=== PATIENT | female | born 1975 | race Caucasian/White ===

== ENCOUNTER 2024-07-16 15:02 | Outpatient (OUT) | payer SELFPAY ==
--- NOTE | 2024-07-16 | XR_ITS ---
The [address] [address] Patient Name: MANNY BOWSER MRN: [id number] date: 1975 Sex: F Assigned Patient Location: [facility] Current Patient Location: [facility] Accession/Order Number: [id number] Exam Date: 07/16/2024 16:04 Report Date: 07/16/2024 16:10 At the request of: JEANNETTE TREVINO MD Procedure: XR tibia fibula RT 2V CLINICAL HISTORY: Paresthesia; R20.2 LUMBAR SPINE -4 views: COMPARISON: None AP, lateral and both oblique views were obtained. There are hypoplastic 12th ribs. There is no evidence of fracture. There is minor stairstep retrolisthesis from L1-2 through L3-4. There is also minimal retrolisthesis of L5 on S1. Slight disc space narrowing is visualized at L3-4. There are tiny endplate spurs. Mild lower lumbar facet disease is noted. No pars defect is identified. The sacroiliac joints are maintained. There are no paraspinal soft tissue abnormalities. XR/XR lumbar spine min 4V IMPRESSION: MILD DEGENERATIVE CHANGES. NO ACUTE BONY FINDINGS. RIGHT TIB-FIB - 2 views COMPARISON: None AP and lateral views were obtained. There is no acute fracture or dislocation. There is minor marginal spurring at the posterior patella. There are enthesophytes at the tibial tubercle as well as at the posterior and plantar calcaneal spur. No soft tissue abnormalities are noted. IMPRESSION: MINOR DEGENERATIVE CHANGES. NO ACUTE BONY FINDINGS. Impression dictated by: Jennifer Guzman M.D.07/16/2024 4:10 PM Dictation Location: [place] [address] Electronically authenticated by: [id number] Y Date: 07/16/2024 16:10
--- NOTE | 2024-07-16 | XR_ITS ---
The [address] [address] Patient Name: MANNY BOWSER MRN: [id number] date: 1975 Sex: F Assigned Patient Location: [facility] Current Patient Location: [facility] Accession/Order Number: [id number] Exam Date: 07/16/2024 16:04 Report Date: 07/16/2024 16:10 At the request of: JEANNETTE TREVINO MD Procedure: XR tibia fibula RT 2V CLINICAL HISTORY: Paresthesia; R20.2 LUMBAR SPINE -4 views: COMPARISON: None AP, lateral and both oblique views were obtained. There are hypoplastic 12th ribs. There is no evidence of fracture. There is minor stairstep retrolisthesis from L1-2 through L3-4. There is also minimal retrolisthesis of L5 on S1. Slight disc space narrowing is visualized at L3-4. There are tiny endplate spurs. Mild lower lumbar facet disease is noted. No pars defect is identified. The sacroiliac joints are maintained. There are no paraspinal soft tissue abnormalities. XR/XR tibia fibula RT 2V IMPRESSION: MILD DEGENERATIVE CHANGES. NO ACUTE BONY FINDINGS. RIGHT TIB-FIB - 2 views COMPARISON: None AP and lateral views were obtained. There is no acute fracture or dislocation. There is minor marginal spurring at the posterior patella. There are enthesophytes at the tibial tubercle as well as at the posterior and plantar calcaneal spur. No soft tissue abnormalities are noted. IMPRESSION: MINOR DEGENERATIVE CHANGES. NO ACUTE BONY FINDINGS. Impression dictated by: Jennifer Guzman M.D.07/16/2024 4:10 PM Dictation Location: [place] [address] Electronically authenticated by: [id number] Y Date: 07/16/2024 16:10
== END 2024-07-16 15:03 | disposition home or self-care (01) ==
PROVIDERS: PCP Family Medicine; Visit Provider Family Medicine
DX: R20.2 Paresthesia of skin (principal); M51.369 Other intervertebral disc degeneration, lumbar region without mention of lumbar back pain or lower extremity pain
CPT/HCPCS: 72110; 73590